=== PATIENT | female | born 1995 | race Caucasian/White ===

== ENCOUNTER 2020-03-21 14:14 | Inpatient (IN) | payer OTHER ==
[~2020-03-21] VITALS: Ht 160 cm; Wt 80.0 kg
[2020-03-21] MEDS ORDERED: PRENAVITE1 TAB PO (16:05)
[2020-03-21 17:21] LABS: BASOPHILS 0.1 % (0-2); EOSINOPHILS 0.7 % (0-7); HEMATOCRIT 39.9 % (36.0-48.0); HEMOGLOBIN 13.4 g/dL (12-16); IMMATURE GRANULOCYTES 0.5 % (0-5); LYMPHOCYTES 14.2 % (15-50); MCH 32.1 pg (26.0-34.0); MCHC 33.6 g/dL (31.0-37.0); MCV 95.5 fL (80.0-100.0); MONOCYTES 10.6 % (2-11); NEUTROPHILS 73.9 % (40-80); PLATELET COUNT 137 10x3/uL (130-400); RBC 4.18 10x6/uL (4.00-5.40); RDW 13.1 % (11.5-14.5); WBC 8.8 10x3/uL (4.8-10.8)
[2020-03-21 17:36] LABS: CALC OSMOLALITY 274 mosm/kg (275-300); CALCIUM 8.8 mg/dL (8.5-10.1); CARBON DIOXIDE 23.1 mmol/L (21.0-32.0); CHLORIDE - SERUM 105 mmol/L (98-107); CREATININE - SERUM 0.8 mg/dL (0.6-1.3); GLUCOSE 92 mg/dL (74-106); POTASSIUM - SERUM 3.8 mmol/L (3.5-5.1); SODIUM 138 mmol/L (136-145); UREA NITROGEN 9 mg/dL (7-18); eGFR NON AFRICAN AMERICAN > 90 mL/min (90-120)
[2020-03-21 17:38] LABS: BILIRUBIN NEGATIVE (NEGATIVE); GLUCOSE NEGATIVE (NEGATIVE); KETONE NEGATIVE (NEGATIVE); NITRITE NEGATIVE (NEGATIVE); UROBILINOGEN NORMAL (NORMAL)
[2020-03-21 17:39] LABS: BACTERIA MANY /hpf (NEGATIVE); EPITHELIAL CELLS 0-5 /hpf (0-5); RED CELLS - URINE OCC /hpf (0-5); UDS - AMPHET NEGATIVE QUAL (NEGATIVE); UDS - BARB NEGATIVE QUAL (NEGATIVE); UDS - BENZO NEGATIVE QUAL (NEGATIVE); UDS - COCAINE NEGATIVE QUAL (NEGATIVE); UDS - OPIATE POSITIVE QUAL (NEGATIVE); UDS - PCP NEGATIVE QUAL (NEGATIVE); UDS - THC NEGATIVE QUAL (NEGATIVE); WHITE CELLS - URINE 0-5 /hpf (NEGATIVE)
[2020-03-21 17:42] LABS: ALBUMIN 2.7 g/dL (3.4-5.0); ALKALINE PHOSPHATASE 159 U/L (30-120); ALT (SGPT) 17 U/L (10-68); BILIRUBIN - DIRECT 0.03 mg/dL (0.00-0.30); BILIRUBIN - INDIRECT 0.12 mg/dL (0.00-1.00); BILIRUBIN - TOTAL 0.15 mg/dL (0.2-1.3); PROTEIN - SERUM 6.8 g/dL (6.4-8.2); URIC ACID 6.1 mg/dL (2.6-7.2)
[2020-03-21 18:33] VITALS: BP 134/85; Ht 160 cm; Wt 80.0 kg
[2020-03-22 23:30] VITALS: BP 137/75
--- NOTE | 2020-03-22 23:30 | NUR ---
PATIENT LYING IN BED, VITAL SIGNS TAKEN. FUNDUS FIRM,U-1/MIDLINE. BLEEDING SCANT RUBRA. NO NEEDS IDENTIFIED. BED LOCKED IN LOW POSITION, SIDE RAILS UPX2, CALL MILIAN IN REACH. WILL CONTINUE TO MONITOR.
--- NOTE | 2020-03-23 01:55 | NUR ---
PATIENT RESTING IN BED, REQUESTING PAIN MEDICATION. REMAINS IN OPEN CRIB AT BEDSIDE.
--- NOTE | 2020-03-23 02:05 | NUR ---
ADMINISTERED PAIN MEDICATION PER MD ORDERS AT THIS TIME. SEE EMAR.
--- NOTE | 2020-03-23 03:22 | NUR ---
PATIENT SITTING UP IN BED . DENIES PAIN AT THIS TIME, SCHEDULED TORADOL ADMINISTERED AT THIS TIME. SEE EMAR. BED REMAINS LOCKED IN LOW POSITION WITH SIDERAILS UPX2, CALL MILIAN AND TRAY TABLE IN REACH. SIGNIFICANT OTHER REMAINS AT BEDSIDE FOR SUPPORT. WILL CONTINUE TO MONITOR.
--- NOTE | 2020-03-23 05:20 | NUR ---
PATIENT SITTING UP IN BED HOLDING INFANT, SIDERAILS UP X2. PT DENIES PAIN OR NEEDS AT THIS TIME. WILL CONTINUE TO MONITOR
--- NOTE | 2020-03-23 05:30 | NUR ---
LAB AT BEDSIDE FOR AM DRAW
[2020-03-23 06:01] LABS: BASOPHILS 0.1 % (0-2); EOSINOPHILS 0.3 % (0-7); HEMATOCRIT 34.8 % (36.0-48.0); HEMOGLOBIN 11.5 g/dL (12-16); IMMATURE GRANULOCYTES 0.3 % (0-5); MCH 31.5 pg (26.0-34.0); MCV 95.3 fL (80.0-100.0); MEAN PLATELET VOLUME 13.6 fL (7.4-10.4); NEUTROPHILS 83.3 % (40-80); RBC 3.65 10x6/uL (4.00-5.40); RDW 13.1 % (11.5-14.5)
[2020-03-23 06:02] LABS: WBC 18.3 10x3/uL (4.8-10.8)
[2020-03-23 06:03] LABS: PLATELET COUNT 104 10x3/uL (130-400)
[2020-03-23 06:09] LABS: RAPID PLASMA REAGIN Non Reactive (Non Reactive)
[2020-03-23 07:15] VITALS: BP 127/84
--- NOTE | 2020-03-23 07:15 | NUR ---
VS AND ASSESSMENT DONE. AWAKE AND SITTING UP IN BED. STATES WILL WANT TO SHOWER SHORTLY. DENIES NEEDS. FUNDUS U1/FIRM. MOD LOCHIA NOTED ON PAD- NO CLOTS.
--- NOTE | 2020-03-23 07:30 | NUR ---
UP TO SHOWER- LINENS CHANGED.
--- NOTE | 2020-03-23 12:35 | NUR ---
up AND ABOUT IN ROOM. PT STATES SHE DOES HAVE SOME CRAMPING AND REQUESTING PAIN MEDICATION. RATES PAIN A 4-5 on scale of 0-10.
--- NOTE | 2020-03-23 14:00 | NUR ---
rates pain down to 1-2. denies needs.
--- NOTE | 2020-03-23 18:23 | NUR ---
sitting up in bed- talking with visitor. denies needs.
[2020-03-23 19:22] VITALS: BP 130/78
--- NOTE | 2020-03-23 19:22 | NUR ---
RN TO PT BEDSIDE FOR ROUNDING, PT COMPLAINS OF 1-2/10 PAIN TO PERINEUM, PT STATES PAIN IS TOLERABLE AT THIS TIME, PT BONDING WITH IN ARMS. FUNDUS IS FIRM, MIDLINE, 2 BELOW, SCANT RUBRA LOCHIA NOTED ON NEETA PAD. BED IN LOWEST POSITION, CALL LIGHT WITHIN REACH, SIDE RAILS UPX2.
--- NOTE | 2020-03-23 22:45 | NUR ---
RN TO PT BEDSIDE, PT SLEEPING AT THIS TIME, FOB AT BEDSIDE, NO NEEDS AT THIS TIME.
[2020-03-24 04:56] VITALS: BP 116/82
--- NOTE | 2020-03-24 04:56 | NUR ---
RN TO PT BEDSIDE FOR ROUNDING, VSS. PT STATES PAIN IS 1-2/10 TO ABDOMEN, PT STATES ALL NEEDS CURRENTLY MET. MOTHER IS BONDING WITH INFANT AT THIS TIME, FOB AT BEDSIDE. BED IN LOWEST POSITION, CALL LIGHT IN REACH, SIDE RAILS UPX2.
[2020-03-24 06:17] LABS: BASOPHILS 0.2 % (0-2); EOSINOPHILS 1.8 % (0-7); HEMATOCRIT 36.4 % (36.0-48.0); IMMATURE GRANULOCYTES 0.3 % (0-5); LYMPHOCYTES 15.9 % (15-50); MCH 31.8 pg (26.0-34.0); MCV 96.6 fL (80.0-100.0); MONOCYTES 7.3 % (2-11); NEUTROPHILS 74.5 % (40-80); PLATELET COUNT 122 10x3/uL (130-400); RBC 3.77 10x6/uL (4.00-5.40); RDW 13.3 % (11.5-14.5)
[2020-03-24 06:18] LABS: WBC 13.1 10x3/uL (4.8-10.8)
--- NOTE | 2020-03-24 07:13 | NUR ---
RN TO ROOM. PT RESTING QUIETLY IN SEMI-FOWLERS POSITION WITH EYES CLOSED. RESP REGULAR AND UNLABORED, NO S/S OF DISTRESS NOTED. FOB RESTING ON COUCH AT BEDSIDE, INFANT IN OPEN CRIB AT BEDSIDE. BED IN LOW POSITION WITH SRUP X2. CALL LIGHT AND PHONE WITHIN REACH. WILL CONTINUE TO MONITOR.
--- NOTE | 2020-03-24 08:48 | NUR ---
PT PREPARING TO SHOWER AT THIS. STEADY GAIT NOTED. DENIES NEEDS. SPOUSE IN ROOM AND STATES THAT HE WILL ASSIST HER WITH NEEDS OR CALL FOR HELP. LINEN CHANGE REFUSED, STATES "I THINK WERE GOING HOME THIS EVENING, THERE'S NO NEED." VERBALIZES UNDERSTANDING OF BR CALL LIGHT USE. WILL CONTINUE TO MONITOR.
[2020-03-24 09:22] VITALS: BP 131/78
--- NOTE | 2020-03-24 09:22 | NUR ---
SHIFT ASSESSMENT COMPLETED PER FLOWSHEET. VSS. FUNDUS FIRM, MIDLINE AND U2 WITH SCANT RUBRA LOCHIA. C/O ABD CRAMPING AND PERINEAL SORENESS 2-3, TORADOL GIVEN, DENIES ADDITIONAL NEED FOR INTERVENTION FOR PAIN. ICE WATER PROVIDED AND PT ENCOURAGED TO DRINK PO FLUIDS. 2+ BLE EDEMA NOTED, 1+ BUE EDEMA NOTED. REPORTS THAT SHE IS PASSING FLATUS AND VOIDING WITHOUT DIFFICULTY. DENIES ADDITIONAL NEEDS AT THIS TIME. WILL CONTINUE TO MONITOR. UP IN CHAIR. CALL LIGHT AND PHONE PLACED WITHIN REACH. SPOUSE REMAINS IN ROOM, SUPPORTIVE AND ATTENTIVE TO PT NEEDS.
--- NOTE | 2020-03-24 09:59 | NUR ---
PAIN REASSESSMENT COMPLETED, REPORT ABD CRAMPING 2/10 CURRENTLY WHILE . DENIES NEEDS. WILL CONTINUE TO MONITOR.
--- NOTE | 2020-03-24 11:26 | NUR ---
ROUNDS MADE. FOB BONDING WITH INFANT IN ARMS. PT LAYING ON R SIDE RESTING WITH EYES CLOSED, RESP REGULAR AND UNLABORED, NO S/S OF DISTRESS NOTED. FOB DENIES NEEDS. WILL CONTINUE TO MONITOR. BED IN LOW POSITION WITH SRUP X2. CALL LIGHT AND PHONE WITHIN REACH.
--- NOTE | 2020-03-24 12:54 | NUR ---
INFANT. C/O PERINEAL BURNING AND STINGING WITH URINATION. SUTURES REMAIN INTACT. REPORTS THAT DERMAPLAST HELPS AND SHE IS ALMOST OUT, NEW CAN PROVIDED. DISCUSSED TUX PADS USE, VERBALIZES UNDERSTANDING AND STATES THAT SHE WANTS TO USE THEM, PROVIDED AND INSTRUCTED ON USE, VERBALIZES UNDERSTANDING, STATES THAT SHE WILL USE WITH NEXT VOID. SIGNIFICANT OTHER REMAINS AT BEDSIDE, SUPPORTIVE AND ATTENTIVE TO PT AND NEEDS. WILL CONTINUE TO MONITOR. BED IN LOW POSITION WITH SRUP X2. CALL LIGHT AND PHONE WITHIN REACH.
--- NOTE | 2020-03-24 13:19 | NUR ---
SPOKE WITH DR. ROSSI REGARDING D/C ORDER. AM CBC RESULTS REVIEWED. ORDERS REC'D TO D/C WITH INFANT.
--- NOTE | 2020-03-24 14:14 | NUR ---
BONDING WITH . DENIES PAIN AND NEEDS AT THIS TIME. UP IN CHAIR. SPOUSE REMAINS IN ROOM, SUPPORTIVE AND ATTENTIVE TO PT AND NEEDS. WILL CONTINUE TO MONITOR.
[2020-03-24 15:18] VITALS: BP 110/72
--- NOTE | 2020-03-24 15:18 | NUR ---
EASILY AROUSES TO VOICE. FOB CARING FOR UPON ENTRY TO ROOM. DENIES PAIN, REQUESTS TO TAKE TORADOL, STATES THAT SHE WILL BE SOON AND TORADOL HELPS RELIEVE CRAMPING. ICE WATER PROVIDED. DENIES ADDITIONAL NEEDS. BED IN LOW POSITION WITH SRUP X2. CALL LIGHT AND PHONE WITHIN REACH. WILL CONTINUE TO MONITOR AND ASSIST PRN.
--- NOTE | 2020-03-24 16:07 | NUR ---
RESTING QUIETLY WITH EYES CLOSED LAYING ON LEFT SIDE. RESP REGULAR AND UNLABORED, NO S/S OF DISTRESS NOTED. IN NBN. BED IN LOW POSITION WITH SRUP X2. CALL LIGHT AND PHONE WITHIN REACH. WILL CONTINUE TO MONITOR. SPOUSE RESTING ON COUCH AT BEDSIDE.
--- NOTE | 2020-03-24 17:49 | NUR ---
ROUNDS MADE. SITTING IN HIGH FOWLERS POSITION IN BED BONDING WITH INFANT. ICE WATER PROVIDED. DENIES ADDITIONAL NEEDS. SPOUSE REMAINS AT BEDSIDE, SUPPORTIVE AND ATTENTIVE TO PT AND INFANT NEEDS. BED IN LOW POSITION WITH SRUP X2. CALL LIGHT AND PHONE WITHIN REACH. WILL CONTINUE TO MONITOR.
--- NOTE | 2020-03-24 19:00 | NUR ---
THIS RN AND Axel AGUILERA RN TO BEDSIDE FOR BEDSIDE SHIFT ASSESSMENT. PT CURRENTLY PER HER . PT LEFT UNITERRUPTED AT THIS TIME.
--- NOTE | 2020-03-24 20:00 | NUR ---
THIS RN RETURNS TO ROOM FOR SHIFT ASSESSMENT AND DISCHARGE TEACHING. NBN NURSE Lilia GONZALES RN COMPLETEING BABY DISCHARGE AT THIS TIME. ONCE COMPLETED. PT'S SHIFT ASSESSMENT COMPLETED. SEE FLOWSHEET. PAIN ASSESSED. PT ONLY REPORTS MILD BACK PAIN 3/10 THAT SHE DESCRIBES STIFFNESS.
[2020-03-24 20:10] VITALS: BP 138/89
--- NOTE | 2020-03-24 20:30 | NUR ---
SHIFT ASSESSMENT COMPLETED. DISCHARGE TEACHING PROVIDED TO INCLUDE POST VAG DELIVERY NORMAL SIGN AND ABNORMAL SIGNS TO WATCH FOR, PP DEPRESSION, PP WARNING SIGNS AND PT ED. SHEET, , PAIN MANAGEMENT W/MOTRIN. DISCHARGE PAPERS SIGNED. COPIES PROVIDED TO PT ALONG W/MULTIPLE TEACHING HANDOUTS. PT AND SPOUSE BOTH DENIES QUESTIONS. TORADOL OFFERED BEFORE DISCHARGE. PT ACCEPTS. PT QUESTIONED ABOUT TDAP VACCINE. PT UNSURE OF WHEN SHE LAST HAD IT. PT'S HX RETREIVED. PT IS DUE FOR TDAP, BUT DOES NOT WANT TO WAIT FOR VACCINE TO BE BROUGHT TO THE UNIT. PT'S RECORD PROVIDED TO HER AND PT EDUCATED ABOUT WHERE SHE CAN RECEIVE THE VACCINE.
--- NOTE | 2020-03-24 20:50 | NUR ---
PT MEDICATED W/TORADOL 10MG PO. DISCHARGED HOME IN STABLE CONDITION WITH BABY. PT AMBULATORY OFF UNIT W/BABY UP IN ARMS TO AWAITING CAR AT MD'S BACK DOOR. PT'S CAR SEAT IS NOT A REMOVEABLE CARRIER. THIS RN VIEWS CARSEAT STAPPED IN FATHERS TRUCK. BABY PLACED IN CARSEAT. APPEARS TO BE APPROPRIATE.
[2020-03-25 07:09] LABS: UDSC - AMPHET Negative ng/mL (Cutoff=1000); UDSC - BARB Negative ng/mL (Cutoff=300); UDSC - BENZO Negative ng/mL (Cutoff=300); UDSC - COC Negative ng/mL (Cutoff=300); UDSC - METH Negative ng/mL (Cutoff=300); UDSC - OPIATES Positive (Cutoff=300); UDSC - PCP Negative ng/mL (Cutoff=25); UDSC - PROPOXY Negative ng/mL (Cutoff=300); UDSC - THC Negative ng/mL (Cutoff=50)
== END 2020-03-24 21:00 | disposition home or self-care (01) | DRG 807 ==
LOC: D.LD 14:14
PROVIDERS: Student in an Organized Health Care Education/Training Program; ADMIT Obstetrics & Gynecology; ATTEND Obstetrics & Gynecology
PROC: 3E033VJ Introduction of Other Hormone into Peripheral Vein, Percutaneous Approach (ICD-10-PCS; principal; 2020-03-22)
PROC: 10D07Z8 Extraction of Products of Conception, Other, Via Natural or Artificial Opening (ICD-10-PCS; 2020-03-22)
DX: O70.1 Second degree perineal laceration during delivery (principal); Z37.0 Single live birth; O69.1XX0 Labor and delivery complicated by cord around neck, with compression, not applicable or unspecified; Z3A.39 39 weeks gestation of pregnancy